=== PATIENT | male | born 1995 | race African-American/Black ===

== ENCOUNTER 2016-09-18 18:32 | Emergency (ER) | payer OTHER ==
[~2016-09-18] VITALS: Ht 175.3 cm; Wt 90.9 kg
[2016-09-18] MEDS ORDERED: PROPARACAINE HCL 0.5% 15 ML OPHTHALMIC SOLUTION OS ONE (19:15)
[2016-09-18 20:18] VITALS: BP 137/82
== END 2016-09-18 20:20 | disposition home or self-care (01) ==
LOC: EMS 18:34
DX: S05.01XA Injury of conjunctiva and corneal abrasion without foreign body, right eye, initial encounter (principal); F12.10 Cannabis abuse, uncomplicated; F17.210 Nicotine dependence, cigarettes, uncomplicated; X58.XXXA Exposure to other specified factors, initial encounter; Y93.89 Activity, other specified; Y92.89 Other specified places as the place of occurrence of the external cause; Y99.8 Other external cause status
CPT/HCPCS: 99283